=== PATIENT | female | born 1935 | race African-American/Black ===

== ENCOUNTER 2022-04-22 23:21 | Inpatient (IN) | payer OTHER ==
[2022-04-22 23:31] VITALS: BMI 24.3
[2022-04-23 02:13] LABS: BASO % 0.4 % (0-2.0); EOS % 0.5 % (0-4.5); HEMOGLOBIN 11.9 GM/dL (10.7-15.3); LYMPH % 20.3 % (8-40); MCH 26.8 pg (25.7-33.7); MEAN CELL VOLUME 81.2 fl (80-96); MEAN PLT VOLUME 6.9 fl (7.5-11.1); MONO % 11.3 % (3.8-10.2); NEUT % 67.5 % (42.8-82.8); PLATELET COUNT 262 10^3/uL (134-434); RBC 4.44 M/mm3 (3.60-5.2); WHITE BLOOD COUNT 5.5 K/mm3 (4.0-10.0)
[2022-04-23 02:38] LABS: SODIUM 141 mmol/L (136-145)
[2022-04-23 02:40] LABS: BLOOD UREA NITROGEN 29.1 mg/dL (7-18); CALCIUM 9.2 mg/dL (8.5-10.1); CO2 33 mmol/L (21-32)
[2022-04-23 02:41] LABS: ALBUMIN 3.4 g/dl (3.4-5.0); GLUCOSE,RANDOM 132 mg/dL (74-106)
[2022-04-23 02:44] LABS: CREATININE 1.4 mg/dL (0.55-1.3); SGOT/AST 92 U/L (15-37); SGPT/ALT 90 U/L (13-61)
[2022-04-23 02:45] LABS: BILIRUBIN,TOTAL 0.9 mg/dL (0.2-1); TOT PROT 7.6 g/dl (6.4-8.2)
[2022-04-23 02:47] LABS: ALK PHOS 114 U/L (45-117)
[2022-04-23 02:49] LABS: ANION GAP 7 MMOL/L (8-16); CHLORIDE 101 mmol/L (98-107)
[2022-04-23] MEDS ORDERED: ASPIRIN 81 MG CHEWABLE TABLETS PO ONE (04:39)
[2022-04-23] MEDS ORDERED: ASPIRIN 81 MG CHEWABLE TABLETS ONE ×2 (05:05→13:18)
[2022-04-23] MEDS ORDERED: POTASSIUM CHLORIDE ORAL LIQUID 20 MEQ/15 ML PO ONE (05:13)
[2022-04-23] MEDS: KCL 10 MEQ IVPB 10 MEQ/100 ML INFUS.BAG IVPB SCH ×3 (05:46→09:30)
[2022-04-23 06:40] LABS: MAGNESIUM 2.2 mg/dL (1.8-2.4)
[2022-04-23] MEDS ORDERED: ENOXAPARIN NA (PORCINE) 80 MG/0.8 ML DISP.SYRIN SQ ONE (06:53)
[2022-04-23] MEDS: ENOXAPARIN NA (PORCINE) 80 MG/0.8 ML DISP.SYRIN SQ SCH ×2 (07:02→22:36)
[2022-04-23] MEDS ORDERED: KCL 10 MEQ IVPB 20 MEQ/200 ML INFUS.BAG IVPB ONE (07:43)
[2022-04-23] MEDS: INSULIN SLIDING SCALE (NOVOLOG) 1 VIAL SQ SCH ×4 (07:51→22:36)
[2022-04-23] MEDS ORDERED: metoPROLOL SUCCINATE 25 MG TAB.SR.24H (FP) PO ONE (11:26)
[2022-04-23] MEDS: metoPROLOL SUCCINATE 25 MG TAB.SR.24H (FP) PO SCH (11:50)
[2022-04-23 12:20] LABS: BASO % 0.6 % (0-2.0); EOS % 0.6 % (0-4.5); HEMATOCRIT 36.6 % (32.4-45.2); HEMOGLOBIN 12.1 GM/dL (10.7-15.3); LYMPH % 24.3 % (8-40); MCH 26.8 pg (25.7-33.7); MCHC 33.2 g/dl (32.0-36.0); MEAN PLT VOLUME 6.8 fl (7.5-11.1); MONO % 10.9 % (3.8-10.2); NEUT % 63.6 % (42.8-82.8); PLATELET COUNT 271 10^3/uL (134-434); RBC 4.52 M/mm3 (3.60-5.2); RDW 16.1 % (11.6-15.6); WHITE BLOOD COUNT 4.2 K/mm3 (4.0-10.0)
[2022-04-23 12:43] LABS: CALCIUM 9.1 mg/dL (8.5-10.1)
[2022-04-23 12:44] LABS: ALBUMIN 3.4 g/dl (3.4-5.0); BLOOD UREA NITROGEN 23.6 mg/dL (7-18); MAGNESIUM 2.1 mg/dL (1.8-2.4)
[2022-04-23 12:46] LABS: CREATININE 0.8 mg/dL (0.55-1.3)
[2022-04-23 12:48] LABS: BILIRUBIN,TOTAL 1.1 mg/dL (0.2-1); TOT PROT 7.6 g/dl (6.4-8.2)
[2022-04-23 12:50] LABS: N-TERMINAL BNP 409.2 pg/ml (5-450)
[2022-04-23] MEDS: ASPIRIN 81 MG CHEWABLE TABLETS PO SCH (13:20)
[2022-04-23] MEDS ORDERED: amLODIPine BESYLATE 5 MG TABLET (FP) PO ONE (16:11)
[2022-04-23] MEDS ORDERED: amLODIPine BESYLATE 5 MG TABLET (FP) ONE (17:05)
[2022-04-23] MEDS ORDERED: LISINOPRIL 20 MG TABLET PO ONE (20:00)
[2022-04-23] MEDS ORDERED: ATORVASTATIN CA 20 MG TABLET (FP) PO SCH (22:00)
[2022-04-23] MEDS: LISINOPRIL 20 MG TABLET PO SCH (22:51)
[2022-04-24] MEDS ORDERED: LORazepam 2 MG/ML SDV VIAL IVPUSH ONE (00:50)
[2022-04-24] MEDS: INSULIN SLIDING SCALE (NOVOLOG) 1 VIAL SQ SCH ×4 (06:31→22:14)
[2022-04-24 07:38] LABS: HEMATOCRIT 35.6 % (32.4-45.2); HEMOGLOBIN 11.9 GM/dL (10.7-15.3); MCHC 33.4 g/dl (32.0-36.0); MEAN CELL VOLUME 80.6 fl (80-96); MEAN PLT VOLUME 7.2 fl (7.5-11.1); PLATELET COUNT 252 10^3/uL (134-434); RBC 4.42 M/mm3 (3.60-5.2); RDW 16.3 % (11.6-15.6); WHITE BLOOD COUNT 4.2 K/mm3 (4.0-10.0)
[2022-04-24 08:05] LABS: BLOOD UREA NITROGEN 17.5 mg/dL (7-18)
[2022-04-24 08:06] LABS: ALBUMIN 3.3 g/dl (3.4-5.0); MAGNESIUM 1.9 mg/dL (1.8-2.4)
[2022-04-24 08:08] LABS: PHOSPHOROUS 3.2 mg/dL (2.5-4.9)
[2022-04-24 08:09] LABS: CREATININE 0.7 mg/dL (0.55-1.3); TOT PROT 7.2 g/dl (6.4-8.2)
[2022-04-24 08:11] LABS: BILIRUBIN,TOTAL 1.3 mg/dL (0.2-1)
[2022-04-24] MEDS: ASPIRIN 81 MG CHEWABLE TABLETS PO SCH (10:46)
[2022-04-24] MEDS: metoPROLOL SUCCINATE 25 MG TAB.SR.24H (FP) PO SCH (10:46)
[2022-04-24] MEDS: ENOXAPARIN NA (PORCINE) 80 MG/0.8 ML DISP.SYRIN SQ SCH ×2 (10:46→21:48)
[2022-04-24] MEDS ORDERED: POTASSIUM CHLORIDE TABS 20 MEQ TABLET.ER (FP) PO ONE (11:45)
[2022-04-24] MEDS: amLODIPine BESYLATE 5 MG TABLET (FP) PO SCH (11:51)
[2022-04-24] MEDS ORDERED: LORazepam 2 MG/ML SDV VIAL IVPUSH PRN (12:13)
[2022-04-24] MEDS ORDERED: POTASSIUM CHLORIDE ORAL LIQUID 20 MEQ/15 ML PO ONE (13:30)
[2022-04-24] MEDS: CARBIDOPA/LEVODOPA 10/100 TABLET (FP) PO SCH (21:48)
[2022-04-24] MEDS: LISINOPRIL 20 MG TABLET PO SCH (21:50)
[2022-04-24] MEDS ORDERED: ATORVASTATIN CA 10 MG TABLET (FP) PO SCH (22:00)
[2022-04-25] MEDS: INSULIN SLIDING SCALE (NOVOLOG) 1 VIAL SQ SCH ×3 (06:16→17:44)
[2022-04-25 07:53] LABS: BASO % 0.4 % (0-2.0); EOS % 1.4 % (0-4.5); HEMATOCRIT 35.1 % (32.4-45.2); HEMOGLOBIN 11.6 GM/dL (10.7-15.3); LYMPH % 27.2 % (8-40); MCH 27.1 pg (25.7-33.7); MCHC 33.1 g/dl (32.0-36.0); MEAN CELL VOLUME 81.7 fl (80-96); MEAN PLT VOLUME 7.4 fl (7.5-11.1); PLATELET COUNT 254 10^3/uL (134-434); RDW 16.2 % (11.6-15.6); WHITE BLOOD COUNT 4.2 K/mm3 (4.0-10.0)
[2022-04-25 08:25] LABS: ALBUMIN 3.3 g/dl (3.4-5.0)
[2022-04-25 08:26] LABS: CALCIUM 9.3 mg/dL (8.5-10.1)
[2022-04-25 08:27] LABS: BLOOD UREA NITROGEN 20.6 mg/dL (7-18)
[2022-04-25 08:30] LABS: CREATININE 0.8 mg/dL (0.55-1.3)
[2022-04-25 08:32] LABS: BILIRUBIN,TOTAL 1.3 mg/dL (0.2-1); TOT PROT 7.2 g/dl (6.4-8.2)
[2022-04-25 09:42] VITALS: RESP 18
[2022-04-25] MEDS: CARBIDOPA/LEVODOPA 10/100 TABLET (FP) PO SCH (09:51)
[2022-04-25] MEDS: ENOXAPARIN NA (PORCINE) 80 MG/0.8 ML DISP.SYRIN SQ SCH (09:51)
[2022-04-25] MEDS: ASPIRIN 81 MG CHEWABLE TABLETS PO SCH (09:51)
[2022-04-25] MEDS: metoPROLOL SUCCINATE 25 MG TAB.SR.24H (FP) PO SCH (09:52)
[2022-04-25] MEDS: amLODIPine BESYLATE 5 MG TABLET (FP) PO SCH (09:52)
[2022-04-25 15:29] VITALS: BP 159/75; PULSE 65; TEMP 97.5
== END 2022-04-25 22:09 | disposition home or self-care (01) | DRG 311 ==
LOC: JER 23:21 → OBSVTOIN 04-23 03:26 → JERBED 04-23 03:26 → J4W 04-23 21:08
PROVIDERS: ADMIT Internal Medicine; ATTEND Internal Medicine
DX: I24.8 Other forms of acute ischemic heart disease (principal); N17.9 Acute kidney failure, unspecified; R07.89 Other chest pain; R07.9 Chest pain, unspecified; I10 Essential (primary) hypertension; E11.9 Type 2 diabetes mellitus without complications; E78.00 Pure hypercholesterolemia, unspecified; R45.1 Restlessness and agitation; E87.6 Hypokalemia; R74.01 Elevation of levels of liver transaminase levels; G20 Parkinson's disease
CPT/HCPCS: 36415; 71045-TC-FY; 71260-TC; 76700-TC; 80053; 80061; 82550; 82553; 82962; 83036; 83735; 83880; 84100; 84443; 84484; 85025; 85027; 85379; 86705; 86803; 87517; 87522; 93005; 93010; 93306-TC; 97116-GP; 97162-GP; 99285-25; C9803-CS; Q9967; U0003; U0005